=== PATIENT | male | born 1945 | race Caucasian/White ===

== ENCOUNTER 2017-04-22 13:11 | Emergency (ER) | payer BC, OTHER ==
[~2017-04-22] VITALS: Wt 91.0 kg
[~2017-04-22 13:11] MED LIST: [UNRECOGNIZED DRUG - REMARK]
[2017-04-22] MEDS ORDERED: KETOROLAC 30 MG INJ IM STA (14:28)
[2017-04-22] MEDS ORDERED: ONDANSETRON (ODT) 4 MG TAB ODT STA (14:28)
[2017-04-22] MEDS ORDERED: HYDROmorphONE 2 MG/ML SYG IM STA (14:28)
--- NOTE | 2017-04-22 15:29 | RADRPT ---
PROCEDURE: CT abdomen and pelvis without IV contrast. CLINICAL INDICATION: Abdominal and right flank pain TECHNIQUE: CT scan of the abdomen and pelvis without contrast was performed on the [employer] volumetric [address] scanner. The patient was scanned without intravenous contrast. Coronal and sagittal refo rmatted images were obtained from the axial source images. The CTDI vol is 15.23 mGy and the DLP is 959.25 mGy-cm. COMPARISON: None. FINDINGS: CT abdomen: The lung bases are clear. The heart size is not enlarged and is without pericardial thickening or e ffusion. The liver is normal in size and density and is without focal mass or intrahepatic biliary dilatation . The spleen is normal in size and homogeneous in density. The stomach is grossly unremarkable. T he pancreas as visualized is normal. The gallbladder and biliary tree are unremarkable and there is no evidence for common bile duct dilatation. The adrenal glands are symmetric and normal. The kid neys are normal in size. Mild right hydroureteronephrosis is seen secondary to a 4 mm obstructing c alculus in the ureterovesicular junction. Right perinephric soft tissue stranding is seen. Small b ilateral non-obstructing renal calculi are seen measuring 2 mm. No left-sided obstructive uropathy or mass lesion is seen. The aorta is of normal in caliber. There is no retroperitoneal lymphadenopathy. The josiane hepatis region is clear. A duodenal diverticulum is seen once again. Descending colon diverticulosis is see n without evidence of diverticulitis. The small and remainder of the large bowel and mesentery, as v isualized, are otherwise unremarkable. The normal appendix is identified. CT pelvis: The prostate is mildly enlarged. The pelvic sidewalls and inguinal regions are clear. No pelvic ma ss, lymphadenopathy, or free fluid is seen. No acute inflammation is seen. The urinary bladder is within normal limits. Degenerative spondylosis of the lumbar spine is seen. Diffuse ill-defined lucencies throughout the osseous structures are seen and is most prominent in the pelvis and sacrum. IMPRESSION: 1. Mild right hydroureteronephrosis secondary to a 4 mm obstructing calculus in the ureterovesicula r junction. 2. Ill-defined lucencies throughout the osseous structures, the findings which may represent a neop lastic process such as multiple myeloma. Correlation with laboratory markers may be of value as cli nically warranted. 3. Descending colon diverticulosis without evidence of diverticulitis. 4. Mildly enlarged prostate. Recommend PSA correlation. RPTAT: HPNM Graham Freeman, Physician Date Time Electronically viewed and signed by Graham Freeman, Physician on 04/22/2017 15:29 /
[2017-04-22 15:36] LABS: ADD UMIC YES; UR ASCORBIC ACID NEGATIVE (NEGATIVE); UR BACTERIA FEW /HPF (NONE SEEN); UR BILIRUBIN (Dip) NEGATIVE (NEGATIVE); UR BLOOD (Dip) 3+ mg/dL (NEGATIVE); UR CLARITY SLIGHTLY CLOUDY (CLEAR); UR COLOR YELLOW (YELLOW); UR GLUCOSE (Dip) NEGATIVE (NEGATIVE); UR KETONES (Dip) NEGATIVE (NEGATIVE); UR LEUKOCYTE ESTERASE (Dip) NEGATIVE Leu/ul (NEGATIVE); UR MUCUS FEW /HPF (NONE SEEN); UR NITRITE (Dip) NEGATIVE (NEGATIVE); UR RBC 22 /HPF (0-5); UR SPECIFIC GRAVITY (Dip) 1.023 (1.003-1.030); UR TOTAL PROTEIN (Dip) NEGATIVE (NEGATIVE); UR UROBILINOGEN (Dip) NEGATIVE (NEGATIVE)
[2017-04-22] MEDS ORDERED: HYDR-902 PO (16:10)
[2017-04-22] MEDS ORDERED: IBUP-1542 PO (16:10)
[2017-04-22] MEDS ORDERED: TAMS-14 PO (16:10)
[2017-04-22 16:11] VITALS: BP 129/68; PULSE 65; RESP 15
--- NOTE | 2017-04-22 16:39 | ERD ---
ER Documentation Chief Complaint Date/Time DATE: 04/22/17 TIME: 16:37 Chief Complaint L FLANK PAIN X 3 DAYS HPI Patient is a 72-year-old male with hypertension and previous kidney stones who presents with right-sided flank pain. He said the pain started last night. He has pain in his groin. He tried a pain pill but he does not know what it was. He has a history of kidney stones in the past. He denies fevers. Upon review of old medical records this is the patient's third visit to the ER since 2007. His primary doctor is Dr. Covington. ROS All systems reviewed and are negative except as per history of present illness. Medications Home Meds Active Scripts Tamsulosin Hcl* (Flomax*) 0.4 Mg Cap.er.24h, 0.4 MG PO QPM, #30 CAP Prov:MARY HIGGINS MD 04/22/17 Hydrocodone/Acetaminophen ([place] 10-325 Tablet) 1 Each Tablet, 1 TAB PO Q6H Y for PAIN, #12 TAB Prov:MARY HIGGINS MD 04/22/17 Ibuprofen* (Motrin*) 600 Mg Tab, 600 MG PO Q8, #30 TAB Prov:MARY HIGGINS MD 04/22/17 Discontinued Reported Medications [No Meds Taken Per Pt] No Conflict Check 01/02/12 Allergies Allergies: Coded Allergies: No Known Allergy (Unverified , 04/22/17) PMhx/Soc History of Surgery: No Anesthesia Reaction: No Hx Neurological Disorder: No Hx Respiratory Disorders: No Hx Cardiac Disorders: No Hx Psychiatric Problems: No Hx Miscellaneous Medical Probl: Yes (hypertension) Hx Alcohol Use: No Hx Substance Use: No Hx Tobacco Use: No Smoking Status: Never smoker FmHx Family History: No diabetes Physical Exam Vitals Vital Signs Date Time Temp Pulse Resp B/P Pulse Ox O2 Delivery O2 Flow Rate FiO2 04/22/17 16:11 65 15 129/68 97 Room Air 04/22/17 13:14 99.0 80 18 215/102 99 Physical Exam Const: Mild distress secondary to pain Head: Atraumatic Eyes: Normal Conjunctiva ENT: Normal External Ears, Nose and Mouth. Neck: Full range of motion..~ No meningismus. Resp: Clear to auscultation bilaterally Cardio: Regular rate and rhythm, no murmurs Abd: Soft, non tender, non distended. Normal bowel sounds Skin: No petechiae or rashes Back: No midline or flank tenderness Ext: No cyanosis, or edema Neur: Awake and alert Psych: Normal Mood and Affect Results 24 hrs Laboratory Tests Test 04/22/17 14:50 Urine Color YELLOW Urine Clarity SLIGHTLY CLOUDY Urine pH 5.0 Urine Specific [place] 1.023 Urine Ketones NEGATIVEmg/dL Urine Nitrite NEGATIVEmg/dL Urine Bilirubin NEGATIVEmg/dL Urine Urobilinogen NEGATIVEmg/dL Urine Leukocyte Esterase NEGATIVELeu/ul Urine Microscopic RBC 22/HPF Urine Microscopic WBC 1/HPF Urine Bacteria FEW/HPF Urine Mucus FEW/HPF Urine Hemoglobin 3+mg/dL Urine Glucose NEGATIVEmg/dL Urine Total Protein NEGATIVEmg/dl Current Medications Medications (Trade) Dose Ordered Sig/Anai Route PRN Reason Start Time Stop Time Status Last Admin Dose Admin Hydromorphone HCl (Dilaudid) 2 mg ONCE STAT IM 04/22/17 14:28 04/22/17 14:30 DC 04/22/17 14:46 Ketorolac Tromethamine (Toradol) 30 mg ONCE STAT IM 04/22/17 14:28 04/22/17 14:30 DC 04/22/17 14:46 Ondansetron HCl (Zofran Odt) 4 mg ONCE STAT ODT 04/22/17 14:28 04/22/17 14:30 DC 04/22/17 15:28 Procedures/MDM CT scan shows a 4 mm kidney stone with mild hydronephrosis per radiology. Urinalysis shows hematuria but no signs of acute infection. Patient is a 72-year-old male with hypertension and kidney stone who presents with right-sided flank pain. The patient was found to have a 4 mm kidney stone with mild hydronephrosis. There is no sign of infected kidney stone and I do not believe the patient requires admission to the hospital at this time. I believe outpatient management is appropriate. He may pass the stone on his own as it is 4 mm but he may require lithotripsy and therefore I will give him information for Dr. Diana from urology. The patient will be given [place], ibuprofen, and Flomax. He can return for any worsening symptoms. Departure Diagnosis: Primary Impression: Kidney stone Additional Impression: Flank pain Condition: Fair Patient Instructions: Kidney Stone W/ Colic Referrals: COREY DIANA MD Additional Instructions: Specialist:Usted tiene alexandrea condicin mdica que requiere que lico a un especialista dentro de los prximos 1-2 hill.POR FAVOR,CON LEMONS SEGUIMIENTO DE PRIMARIA PHSICIAN refferal. SI USTED NO TIENE UN MDICO GENERAL Y / O USTED NO PUEDE PAGAR finn a un mdico,los siguientes whittaker RECURSOS sido suministrado a usted. ES LEMONS RESPONSABILIDAD PARA SER VISTOS POR EL ESPECIALISTA: MARY HIGGINS MD Apr 22, 2017 16:39
== END 2017-04-22 16:44 | disposition home or self-care (01) ==
LOC: E/R 13:11
DX: N20.0 Calculus of kidney (principal); I10 Essential (primary) hypertension
CPT/HCPCS: 74176; 81001; J1170; J1885; 96372